=== PATIENT | female | born 1990 ===

== ENCOUNTER 2023-09-15 14:37 | Outpatient (CLI) | payer OTHER | END 2023-09-15 14:43 | disposition home or self-care (01) | LOC: PRENATAL 14:37 | PROVIDERS: ATTEND Obstetrics & Gynecology Maternal & Fetal Medicine | DX: O36.80X0 Pregnancy with inconclusive fetal viability, not applicable or unspecified (principal); O26.859 Spotting complicating pregnancy, unspecified trimester; O99.210 Obesity complicating pregnancy, unspecified trimester; Z3A.01 Less than 8 weeks gestation of pregnancy ==